=== PATIENT | male | born 1995 | race Caucasian/White ===

== ENCOUNTER 2021-11-17 13:24 | Outpatient (CLI) | payer BC, SELFPAY ==
--- NOTE | ~2021-11-17 | US_ITS ---
EXAMINATION: US soft tissue head and neck DATE: 11/17/2021 13:50 INDICATION: Epidermal cyst. TECHNIQUE: Multiple grayscale and Doppler ultrasound images of the neck were obtained. COMPARISON: None FINDINGS: In the right posterior neck, there is a 2 mm hypoechoic subcutaneous mass. IMPRESSION: 1. 2 mm hypoechoic subcutaneous mass in right posterior neck, likely benign. Reviewed, dictated and finalized at location B.
== END 2021-11-17 13:25 | disposition home or self-care (01) ==
PROVIDERS: PCP Physician Assistant; Visit Provider Physician Assistant
DX: L72.0 Epidermal cyst (principal)
CPT/HCPCS: 76536

== ENCOUNTER 2022-02-16 00:42 | Day surgery (SDC) | payer BC, SELFPAY ==
[2022-02-16 09:58] VITALS: BP 129/88; PULSE 92; RESP 16; TEMP 36.6; O2SAT 100; BMI 30.5
[2022-02-16] MEDS: LACTATED RINGERS 1,000 ML 150 ML IV CONT (10:05)
--- NOTE | 2022-02-16 10:30 | WPDANESEPPF ---
Anes - Initial Pre Proc Eval Procedure: Operation Date: 02/16/22 11:15 Proposed Procedures p Esophagogastroduodenoscopy EGD - Rupert Lubin MD Date/Time: 02/16/22 10:30 Surgeon: Rupert Lubin MD Pre Op Diagnosis: GERD Patient Data Age: 26 Gender: M Height: 1.91 m Weight: 110.8 kg Last Vital Signs Temp 97.9 F 02/16/22 09:58 Pulse 92 02/16/22 09:58 Resp 16 02/16/22 09:58 BP 129/88 02/16/22 09:58 Pulse Ox 100 02/16/22 09:58 O2 Del Method Room Air 02/16/22 09:58 Allergies Allergy/AdvReac Type Severity Reaction Status Date / Time No Known Allergies Allergy Verified 02/16/22 09:57 Home Medications Medication Instructions Recorded Confirmed Type esomeprazole magnesium 40 mg 40 mg PO DAILY #30 caps 01/15/22 02/16/22 Rx capsule,delayed release (Nexium) Patient hx anesthesia problems: none Family hx anesthesia problems: none Results Review: All pre-operative results and documents have been reviewed as part of the pre-operative evaluation. [facility] Family History Family History Mother No problems noted. Father No problems noted. Sibling No problems noted. Social History Social History Smoking status: Never smoker Second hand tobacco smoke exposure: No Alcohol intake: current Alcohol use details: social Substance use: never Substance use type: does not use Living arrangements: alone Spiritual care concerns: No Anes - Eval Final PreProcedure Day of Procedure 02/16/22 10:30 Patient weight: obese Heart: regular rate and rhythm Lungs: clear to auscultation Airway: Mallampati scale class II Neurological: alert and oriented Last oral intake: >/= 8 hours ASA classification: II Emergent: no Anesthetic plan: proceed Anesthesia type and monitoring: general GIVS and standard monitoring Results Review: All pre-operative results and documents have been reviewed as part of the pre-operative evaluation. Informed Consent: The patient's anesthetic plan and its attendant risks and benefits were discussed with the patient/family/POA. Questions were solicited and answers provided to the satisfaction of the patient/family/POA.
--- NOTE | 2022-02-16 10:58 | PM.HPGS ---
History of Present Illness History of Present Illness Consent: Risks, benefits, and alternatives have been discussed and questions answered. Patient agrees to proceed with procedure. Chief complaint: GERD Narrative: Cecil Lane is a 26 year old male with gerd better with nexium but sometimes still with reflux, never had egd Review of Systems Constitutional: Constitutional: Denies headache(s) and Denies weakness Eyes: Eyes: Denies blurry vision ENT: Reports Normal hearing present, Denies headache(s) and Denies neck pain Cardiovascular: Cardiovascular: Denies chest pain and Denies dyspnea Respiratory: Respiratory: Denies dyspnea Gastrointestinal: Gastrointestinal: Reports no additional gastrointestinal complaints Genitourinary: Genitourinary: Denies dysuria Musculoskeletal: Musculoskeletal: Denies neck pain Integumentary/Breasts: Skin/Breast: Denies dry skin Neurologic: Reports Normal hearing present, Denies headache(s) and Denies weakness Psychiatric: Psychiatric: Denies anxiety Endocrine: Endocrine: Denies change in body appearance Hematologic/Lymphatic: Hematologic/Lymphatic: Denies easy bleeding Allergic/Immunologic: Allergic/Immunologic: Denies urticaria PMF Past Medical History Medical History (Updated 02/16/22 @ 10:59 by Rupert Lubin MD) GERD (gastroesophageal reflux disease) Family History Family History Mother No problems noted. Father No problems noted. Sibling No problems noted. Social History Social History Smoking status: Never smoker Second hand tobacco smoke exposure: No Alcohol intake: current Alcohol use details: social Substance use: never Substance use type: does not use Living arrangements: alone Spiritual care concerns: No Meds Home Medications and Allergies Home Medications Medication Instructions Recorded Confirmed Type esomeprazole magnesium 40 mg 40 mg PO DAILY #30 caps 01/15/22 02/16/22 Rx capsule,delayed release (Nexium) Allergies Allergy/AdvReac Type Severity Reaction Status Date / Time No Known Allergies Allergy Verified 02/16/22 09:57 Vital Signs Vital Signs - 24 hr 02/16/22 09:58 Temperature 97.9 F Pulse Rate 92 Respiratory Rate 16 Blood Pressure 129/88 Pulse Oximetry 100 Oxygen Delivery Room Air Exam Const: General: comfortable and no acute distress HENMT: General nose exam: Normal nares present Eyes: General: appearance normal, both eyes and all related structures Neck: Neck: no JVD Resp: Auscultation: clear to auscultation bilaterally Cardio: Rate: regular rate Rhythm: regular rhythm GI: Inspection: non-distended GI Palp: Yes Soft to palpation Skin: General skin exam: normal color Neuro: General: gait normal Speech: normal speech Extrem: General: normal to inspection Psych: Mental Status: mental status grossly normal Assessment and Plan Assessment and plan (1) GERD (gastroesophageal reflux disease): Code(s): K21.9 - Gastro-esophageal reflux disease without esophagitis Status: Acute Assessment and Plan: egd with bx on ppi
[2022-02-16 11:13] VITALS: BP 115/69; PULSE 85; RESP 17; O2SAT 96
[2022-02-16 11:23] VITALS: BP 121/73; PULSE 68; RESP 15; O2SAT 99
[2022-02-16 11:33] VITALS: BP 119/79; PULSE 68; RESP 20; O2SAT 98
== END 2022-02-16 11:39 | disposition home or self-care (01) ==
PROVIDERS: PCP Physician Assistant; Visit Provider Internal Medicine Gastroenterology
PROC: 0DJ08ZZ Inspection of Upper Intestinal Tract, Via Natural or Artificial Opening Endoscopic (ICD-10-PCS; CPT 43235; principal; 2022-02-16 11:15)
DX: K21.9 Gastro-esophageal reflux disease without esophagitis (principal); E66.9 Obesity, unspecified; Z68.30 Body mass index [BMI] 30.0-30.9, adult
CPT/HCPCS: 43239; 88305; J2704; J7120

== ENCOUNTER 2022-03-04 07:43 | Outpatient (CLI) | payer BC, SELFPAY ==
--- NOTE | ~2022-03-04 | US_ITS ---
EXAMINATION: US abdomen limited DATE: 03/04/2022 08:26 INDICATION: Epigastric and right upper quadrant pain TECHNIQUE: Multiple grayscale and Doppler ultrasound images of the abdomen were obtained. COMPARISON: None available FINDINGS: Bowel gas obscures visualization of the pancreas. The visualized portions of the pancreas a re unremarkable. The liver is normal with normal echogenicity and echotexture. No surface nodularity. Normal hepatopetal flow in the main portal vein. There are soft tissue masses of the gallbladder whi ch measure 9 mm and 7 mm. The normal common bile duct measures 2 mm. There was no sonographic Martinez sign. IMPRESSION: 1. Soft tissue masses of the gallbladder measuring up to 9 mm, consistent with benign polyp, adenoma, versus small cancer. Follow-up ultrasound in one year is recommended. Reviewed, dictated and finalized at location A.
== END 2022-03-04 07:44 | disposition home or self-care (01) ==
PROVIDERS: PCP Physician Assistant; Visit Provider Physician Assistant
DX: R10.13 Epigastric pain (principal); K82.9 Disease of gallbladder, unspecified
CPT/HCPCS: 76705

== ENCOUNTER 2022-03-21 11:33 | Outpatient (CLI) | payer BC, SELFPAY ==
--- NOTE | ~2022-03-21 | NM_ITS ---
EXAMINATION: NM hepatobiliary wo pharm DATE: 03/21/2022 14:06 CDT INDICATION: Right upper quadrant pain. COMPARISON: Ultrasound dated 03/04/2020. TECHNIQUE: 4.9 mCi Tc-99m mebrofenin (Choletec) was administered intravenously. Scintigraphic images of the abdomen were obtained for one hour. At the 1 hour time point, the patient drank 8 oz Ensure, and imaging was continued for 60 minutes. Gallbladder ejection fraction was calculated by the technol ogist. FINDINGS: There is normal clearance of radiotracer from the blood pool. There is homogeneous tracer u ptake by the liver. Activity progresses to the bowel and gallbladder. The gallbladder ejection fract ion is 74%. Note that with this technique, normal GBEF >= 33%. IMPRESSION: 1. Normal hepatobiliary scan. Reviewed, dictated and finalized at location A.
== END 2022-03-21 11:34 | disposition home or self-care (01) ==
PROVIDERS: PCP Physician Assistant; Visit Provider Physician Assistant
DX: R10.11 Right upper quadrant pain (principal); R10.13 Epigastric pain
CPT/HCPCS: 78226; A9537